=== PATIENT | female | born 1975 | race Caucasian/White ===

== ENCOUNTER 2022-06-04 05:30 | Day surgery (SDC) | payer OTHER ==
[~2022-06-04] VITALS: Ht 160 cm; Wt 71.2 kg
[~2022-06-04 05:30] MED LIST: GABAPENTI PO; LIPIT PO
[2022-06-04] MEDS ORDERED: MORGIDOX100 MG PO (09:11)
[2022-06-04] MEDS ORDERED: IBU600 MG PO (09:11)
== END 2022-06-04 13:10 | disposition home or self-care (01) ==
LOC: CIR.AMB 05:30
PROVIDERS: ATTEND Obstetrics & Gynecology
DX: N84.0 Polyp of corpus uteri (principal); Z20.822 Contact with and (suspected) exposure to COVID-19; Z88.0 Allergy status to penicillin